=== PATIENT | female | born 2000 | race Hispanic/Latino ===

== ENCOUNTER 2022-03-12 16:22 | Emergency (ER) | payer SELFPAY ==
[2022-03-12 16:56] LABS: Absolute Lymphocytes (CBC) 2.5 K/uL (0.7-4.9); Hematocrit 34.3 % (36.0-45.0); Lymphocytes % 23.5 % (15.3-44.8); MPV 9.3 fL (7.6-11.3); RBC Red Blood Cell Count 4.18 M/uL (3.86-4.86)
[2022-03-12 17:14] LABS: Potassium 3.6 mmol/L (3.5-5.1); Thyroid Stimulating Hormone 1.14 uIU/mL (0.360-3.740)
--- NOTE | 2022-03-12 17:17 | EDPHYS ---
Physician Documentation [facility] Name: Brittney Ortega Age: 21 yrs Sex: Female : 2000 Arrival Date: 03/12/2022 Time: 16:24 Bed 11 Private MD: ED Physician Walt Dye HPI: 03/12 16:42 This 21 yrs old Female presents to ER via Ambulatory with complaints of kb Vaginal Bleeding, High Blood Pressure, Headache. 16:42 The patient presents with vaginal bleeding that is. Onset: The symptoms/episode kb began/occurred 6 month(s) ago. Modifying factors: The symptoms are alleviated by nothing, the symptoms are aggravated by nothing. Associated signs and symptoms: Pertinent positives: vaginal bleeding. Severity of symptoms: At their worst the symptoms were moderate, in the emergency department the symptoms are unchanged. The patient has not experienced similar symptoms in the past. The patient has not recently seen a physician. Pt reports vaginal bleeding that started in September. States she has bleeding every day, sometimes heavy other times light. Went to the [place] [facility] to get it checked out. States she was told her bp and heartrate were high so she needed to come here to make sure she wasn't anemic. . 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 - Social history:: Smoking status: Patient/guardian denies using tobacco. ROS: 16:42 Constitutional: Negative for fever, chills, and weight loss. kb 16:42 : Positive for vaginal bleeding. 16:42 All other systems are negative. Exam: 16:42 Constitutional: This is a well developed, well nourished patient who is awake, alert, kb and in no acute distress. Head/Face: Normocephalic, atraumatic. Cardiovascular: Regular rate and rhythm with a normal S1 and S2. No gallops, murmurs, or rubs. No pulse deficits. Respiratory: Respirations even and unlabored. No increased work of breathing. Talking in full sentences Abdomen/GI: Soft, non-tender. No distention Skin: Warm, dry with normal turgor. Normal color. MS/ Extremity: Pulses equal, no cyanosis. Neurovascular intact. Full, normal range of motion. Neuro: Awake and alert, GCS 15, oriented to person, place, time, and situation. Moves all extremities. Normal gait. Psych: Awake, alert, with orientation to person, place and time. Behavior, mood, and affect are within normal limits. Vital Signs: 16:32 BP 150 / 92; Pulse 95; Resp 18 S; Temp 98.4(O); Pulse Ox 98% on R/A; Weight 95.71 kg aa5 (R); Height 5 ft. 6 in. (167.64 cm) (R); 16:32 Body Mass Index 34.06 (95.71 kg, 167.64 cm) aa5 MDM: 16:33 Patient medically screened. kb 16:41 Data reviewed: vital signs, nurses notes. Data interpreted: Pulse oximetry: on room air kb is 98 %. Interpretation: normal. 17:16 Counseling: I had a detailed discussion with the patient and/or guardian regarding: the kb historical points, exam findings, and any diagnostic results supporting the discharge/admit diagnosis, lab results, the need for outpatient follow up, an OB/Gyne specialist, to return to the emergency department if symptoms worsen or persist or if there are any questions or concerns that arise at home. 03/12 16:33 Order name: CBC with Diff; Complete Time: 17:10 kb 03/12 16:33 Order name: Basic Metabolic Panel; Complete Time: 17:16 kb 03/12 16:33 Order name: IV Start; Complete Time: 16:42 kb 03/12 16:33 Order name: TSH; Complete Time: 17:16 kb Administered Medications: No medications were administered Disposition: 19:54 Co-signature as Attending Physician, Walt NORMAN was immediately available on-site ms3 in the Emergency Department for consultation in the care of the patient.. Disposition Summary: 03/12/22 17:16 Discharge Ordered Location: Home kb Condition: Stable kb Diagnosis - Abnormal uterine and vaginal bleeding, unspecified kb Followup: kb - With: Emergency Department - When: As needed - Reason: Worsening of condition Followup: kb - With: Private Physician - When: 2 - 3 days - Reason: Recheck today's complaints, Continuance of care, Re-evaluation by your physician Discharge Instructions: - Discharge Summary Sheet kb - Abnormal Uterine Bleeding, [id number] kb Forms: - Medication Reconciliation Form kb - Thank You Letter kb - Antibiotic Education kb - Prescription Opioid Use kb - Work release form iw - Family Work Release iw Signatures: Dispatcher [employer] EDKymberly Mcallister, Malia Hernandez RN RN aa5 Walt Dye DO DO ms3 Corrections: (The following items were deleted from the chart) 16:34 16:33 PSHx: None; aa5 aa5
--- NOTE | 2022-03-12 17:17 | ER ---
Nurse's Notes [facility] Name: Brittney Ortega Age: 21 yrs Sex: Female : 2000 Arrival Date: 03/12/2022 Time: 16:24 Bed 11 Private MD: Diagnosis: Abnormal uterine and vaginal bleeding, unspecified Presentation: 03/12 16:32 Chief complaint: Patient states: seen at [facility] for vaginal bleeding and was aa5 told to come to ER for possible anemia. Pt states "I've been having my period every day since September and it gets county adviser and then heavier". Coronavirus screen: At this time, the client does not indicate any symptoms associated with coronavirus-19. Ebola Screen: No symptoms or risks identified at this time. Initial Sepsis Screen: Does the patient meet any 2 criteria? HR > 90 bpm. Does the patient have a suspected source of infection? No. Patient's initial sepsis screen is negative. Risk Assessment: Do you want to hurt yourself or someone else? Patient reports no desire to harm self or others. Onset of symptoms was September 2021. 16:32 Acuity: PAWAN 3 aa5 16:32 Method Of Arrival: Ambulatory aa5 Triage Assessment: 17:00 General: Appears in no apparent distress. Behavior is calm, cooperative. 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 - Social history:: Smoking status: Patient/guardian denies using tobacco. Screenin:30 Abuse screen: Denies threats or abuse. Denies injuries from another. Nutritional iw screening: No deficits noted. Tuberculosis screening: No symptoms or risk factors identified. Fall Risk None identified. Assessment: 17:00 General: Appears in no apparent distress. Behavior is calm, cooperative. Pain: Denies iw pain. Neuro: Level of Consciousness is awake, alert, obeys commands, Oriented to person, place, time, situation. Cardiovascular: Patient's skin is warm and dry. Respiratory: Respiratory effort is even, unlabored, Respiratory pattern is regular. : Reports vaginal bleeding that is. Derm: Skin is intact, is healthy with good turgor. Vital Signs: 16:32 BP 150 / 92; Pulse 95; Resp 18 S; Temp 98.4(O); Pulse Ox 98% on R/A; Weight 95.71 kg aa5 (R); Height 5 ft. 6 in. (167.64 cm) (R); 16:32 Body Mass Index 34.06 (95.71 kg, 167.64 cm) aa5 ED Course: 16:24 Patient arrived in ED. mr 16:24 Kymberly Dixon FNP-C is PHCP. kb 16:24 Walt Dye DO is Attending Physician. kb 16:32 Arm band placed on. aa5 16:33 Triage completed. aa5 16:40 Initial lab(s) drawn, by me, sent to lab. Inserted saline lock: 20 gauge in right aa5 antecubital area, using aseptic technique. Blood collected. 17:00 Patient has correct armband on for positive identification. iw 17:33 Sandra Hussein, RN is Primary Nurse. iw 17:35 No provider procedures requiring assistance completed. IV discontinued, intact, iw bleeding controlled, No redness/swelling at site. Pressure dressing applied. Administered Medications: No medications were administered Medication: 18:14 VIS not applicable for this client. iw Outcome: 17:16 Discharge ordered by . kb 17:35 Discharged to home ambulatory. iw 17:35 Condition: good 17:35 Discharge instructions given to patient, Instructed on discharge instructions, follow up and referral plans. Demonstrated understanding of instructions, follow-up care. 17:36 Patient left the ED. iw Signatures: Kymberly Dixon FNP-C FNP-Fahad Marcy Miller mr Sandra Hussein, RN RN iw Malia Mccrary, RN RN aa5 Corrections: (The following items were deleted from the chart) 16:34 16:33 PSHx: None; aa5 aa5
[2022-03-12 17:56] VITALS: BP 150/92; TEMP 98.4; O2SAT 98
== END 2022-03-12 17:36 | disposition home or self-care (01) ==
LOC: ER 16:22
DX: N93.9 Abnormal uterine and vaginal bleeding, unspecified (principal); Z88.5 Allergy status to narcotic agent
CPT/HCPCS: 36415; 80048; 84443; 85025; 99283